=== PATIENT | male | born 1980 | race Caucasian/White ===

== ENCOUNTER 2017-01-26 16:04 | Inpatient (IN) ==
[2017-01-26 16:59] LABS: Bilirubin,Urine Negative (Negative); Blood,Urine Negative (Negative); Clarity,Urine Cloudy (Clear); Color,Urine Dark Yellow (Yellow); Glucose,Urine (UA) Normal (Normal); Ketones,Urine Negative (Negative); Leukocyte Esterase,Urine Negative (Negative); Nitrite,Urine Negative (Negative); Protein,Urine Trace mg/dL (Neg-Trace); Specific Gravity,Urine > 1.030 (1.010-1.025); Urobilinogen,Urine Normal (Normal)
[2017-01-26 17:01] LABS: Bacteria,Urine None Seen per hpf (None-Few); Hyaline Casts,Urine None Seen per lpf (None-Few); Squamous Epithelial Cell,Urine Many per lpf (None-Few)
[2017-01-26 17:05] LABS: Amphetamine Screen,Urine Negative ng/mL (Cutoff=1000); Barbiturate Screen,Urine Negative ng/mL (Cutoff=200); Benzodiazepines Screen,Urine Positive ng/mL (Cutoff=200); Cannabinoid Screen,Urine Negative ng/mL (Cutoff = 50); Cocaine Screen,Urine Negative ng/mL (Cutoff= 300); Opiate Screen,Urine Negative ng/mL (Cutoff=300); Phencyclidine Screen,Urine Negative ng/mL (Cutoff=25)
[2017-01-26 17:06] LABS: Basophils # 0.1 K/mcL (0.0-0.2); Basophils % 0.5 %; Eosinophils # 0.4 K/mcL (0.0-0.6); Eosinophils % 4.7 %; Hematocrit 39.5 % (37.5-50.1); Hemoglobin 12.8 g/dL (12.9-16.9); Immature Granulocytes % 0.3 % (0-4); Lymphocytes # 2.3 K/mcL (0.6-4.6); Lymphocytes % 25.5 %; Mean Corpuscular HGB Conc 32.4 g/dL (31.6-35.5); Mean Corpuscular Hemoglobin 29.6 pg (28.0-33.3); Mean Corpuscular Volume 91.2 fL (83.0-100.0); Mean Platelet Volume 10.8 fL (9.4-12.4); Monocytes # 0.6 K/mcL (0.0-1.3); Monocytes % 6.2 %; Neutrophils # 5.7 K/mcL (1.6-8.9); Platelet Count 218 K/mcL (140-400); Red Blood Count 4.33 M/mcL (4.19-5.50); Red Cell Distribution Width 13.1 % (11.5-14.5); Segmented Neutrophils % 62.8 %
[2017-01-26 17:23] LABS: BUN/Creatinine Ratio 14 (6-26); Blood Urea Nitrogen 14 mg/dL (8-26); Calcium 9.2 mg/dL (8.6-10.8); Carbon Dioxide 30 mEq/L (19-29); Chloride 106 mEq/L (98-109); Glucose 129 mg/dL (70-99); Osmolality,Calculated 298 (280-300); Potassium 3.8 mEq/L (3.5-4.5); Sodium 143 mEq/L (136-145); eGFR For African Americans > 60 (> 60); eGFR For Non-African Americans > 60 (> 60)
[2017-01-26 17:24] LABS: Acetaminophen < 1.0 mcg/mL (10-30); Ethanol < 10 mg/dL (0-10); Salicylate < 5.0 mg/dL (15-30)
--- NOTE | 2017-01-26 17:37 | Emergency Department Note ---
START Narrative - START START: I examined this patient and my medical decision-making was reviewed with the Resident Physician. I agree with the documented findings, disposition and treatment plan as described except to the extent set forth below. Patient to ED with depression and suicidal thoughts. Plans to stab himself or overdose. States has been depressed since the hospital admission. Exam shows him in no acute distress. Mildly anxious. Plan. Medical clearance and 1A evaluation. [place] slip. Psych consult pending. 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
--- NOTE | 2017-01-26 18:47 | Emergency Department Note ---
Disposition Clinical Impression: Suicidal ideation, Homicidal ideation Disposition: Admitted As Inpatient Condition: Good Time of Disposition: 18:49 General Adult HPI - General Chief complaint: ED Psychiatric Symptoms Stated complaint: SI, Want to kill myself Time Seen by Provider: 01/26/17 16:30 Source: patient Limitations: no limitations Nursing Notes Reviewed: Yes Vital Signs Reviewed: Yes - History of Present Illness HPI Narrative: Patient complaining of suicidal and homicidal ideation. States he has been depressed since August. Does take medications but has not been taking them appropriately since his left him this week. States that he will stab himself in the chest were taken overdose of medication. He states he feels safe all he is here. Pain Scale: 0 - Related Data Home Medications Medication Instructions Recorded Confirmed Alprazolam [Xanax] 2 mg PO TID 01/26/17 01/26/17 Amitriptyline HCl 150 mg PO HS 01/26/17 01/26/17 Apixaban [Eliquis] 5 mg PO BID 01/26/17 01/26/17 Atorvastatin [Lipitor] 40 mg PO HS 01/26/17 01/26/17 BuPROPion SR (12 HR) [Wellbutrin 150 mg PO BID 01/26/17 01/26/17 SR] Gabapentin [Neurontin] 900 mg PO TID 01/26/17 01/26/17 Lisinopril/Hydrochlorothiazide 1 each PO DAILY 01/26/17 01/26/17 [Zestoretic 20-12.5 mg Tablet] Multivitamin [Multi-Day Vitamins] 1 each PO DAILY 01/26/17 01/26/17 Allergies Allergy/AdvReac Type Severity Reaction Status Date / Time Penicillins Allergy Hives Verified 01/26/17 16:09 sulfamethoxazole Allergy Hives Verified 01/26/17 16:09 [From Bactrim] trimethoprim [From Bactrim] Allergy Hives Verified 01/26/17 16:09 All systems ED: reviewed and negative except as stated. Constitutional: Denies: fever, chills Cardiovascular: Denies: chest pain, palpitations, syncope Respiratory: Denies: cough, dyspnea Gastrointestinal: Denies: abdominal pain, nausea, vomiting, diarrhea, hematemesis, melena, hematochezia Genitourinary: Denies: urgency, dysuria, frequency, hematuria Musculoskeletal: Denies: back pain, neck pain Integumentary: Denies: rash, abrasion, lesions Neurological: Denies: headache, weakness, numbness Psychiatric: Reports: suicidal thoughts, homicidal thoughts. Denies: auditory hallucinations, visual hallucinations Past Medical History - Past Medical History Medical history: Reports: CVA, DVT, hypertension Psychiatric history: Reports: anxiety, depression - Social History Smoking Status: Current every day smoker Smokeless Tobacco Status: No Alcohol use: Reports: none Drug use: Reports: none Physical Exam - General Limitations: no limitations General appearance: alert, in no apparent distress - Head Head exam: atraumatic, normocephalic, normal inspection - Eye Eye exam: Present: normal appearance, PERRL, EOMI. Absent: scleral icterus - ENT ENT exam: normal exam, normal oropharynx, mucous membranes moist - Neck Neck exam: Present: normal inspection, full ROM, trachea midline. Absent: tenderness, meningismus, lymphadenopathy - Chest Chest inspection: Present: normal inspection, symmetric chest wall rise. Absent : tenderness - Respiratory Respiratory exam: Present: normal lung sounds bilaterally. Absent: respiratory distress, accessory muscle use - Cardiovascular Cardiovascular exam: Present: regular rate, normal rhythm, normal heart sounds - Abdominal Exam Abdominal exam: Present: soft, Non-Tender. Absent: rigidity - Extremities Exam Extremities exam: Present: normal inspection, full ROM, normal capillary refill. Absent: tenderness, pedal edema - Neurological Exam Neurological exam: Present: alert, oriented X3 - Psychiatric Psychiatric exam: Present: normal affect, normal mood - Skin Skin exam: Present: warm, dry, intact, normal color. Absent: rash, cyanosis, diaphoresis Course Course Narrative: Male patient presenting to the emergency department complaining of suicidal and homicidal ideation. He states that he has been depressed after he had a stroke in August. He is on Wellbutrin as well as a benzo and amitriptyline. He states his left him last week. He states that he will go to his mother's grave and stab himself in the chest. He states if he cannot get there he will then take an overdose of a pain medication. If his is cheating on him she he will findings I kill him and then kill himself in front of his . He has no other complaints at this time. He tells stories frequently while I am in the room. His lung sounds are clear heart tones are normal. His abdomen is soft and nontender. He states that he feels safe here. He denies any hallucinations. We will get a psych workup on patient and have one a evaluate him. Vital Signs Temperature 97.8 F 01/26/17 16:05 Pulse Rate 104 01/26/17 16:05 Respiratory Rate 18 01/26/17 16:05 Blood Pressure 132/77 01/26/17 16:05 O2 Sat by Pulse Oximetry 96 01/26/17 16:05 Temperature 97.8 F 01/27/17 08:32 Pulse Rate 96 01/27/17 08:32 Respiratory Rate 18 01/27/17 08:32 Blood Pressure 136/87 01/27/17 08:32 O2 Sat by Pulse Oximetry 96 01/26/17 16:05 Medical Decision Making - Medical Records Medical records reviewed: Yes I reviewed the patient's medical records. - Lab Data Lab results reviewed: Yes I reviewed the patient's lab results. Result diagrams: 01/26/17 17:01 01/26/17 17:01 Lab Results 01/26/17 01/26/17 01/26/17 Range/Units 16:50 16:50 17:01 WBC 9.1 (4.3-11.1) K/mcL RBC 4.33 (4.19-5.50) M/mcL Hgb 12.8 L (12.9-16.9) g/dL Hct 39.5 (37.5-50.1) % MCV 91.2 (83.0-100.0) fL MCH 29.6 (28.0-33.3) pg MCHC 32.4 (31.6-35.5) g/dL RDW 13.1 (11.5-14.5) % Plt Count 218 (140-400) K/mcL MPV 10.8 (9.4-12.4) fL Immature Gran % 0.3 (0-4) % Seg Neutrophils % 62.8 % Lymphocytes % 25.5 % Monocytes % 6.2 % Eosinophils % 4.7 % Basophils % 0.5 % Neutrophils # 5.7 (1.6-8.9) K/mcL Lymphocytes # 2.3 (0.6-4.6) K/mcL Monocytes # 0.6 (0.0-1.3) K/mcL Eosinophils # 0.4 (0.0-0.6) K/mcL Basophils # 0.1 (0.0-0.2) K/mcL Sodium (136-145) mEq/L Potassium (3.5-4.5) mEq/L Chloride (98-109) mEq/L Carbon Dioxide (19-29) mEq/L BUN (8-26) mg/dL Creatinine (0.72-1.25) mg/dL Est GFR ( Amer) (> 60) Est GFR (Non-Af Amer) (> 60) BUN/Creatinine Ratio (6-26) Glucose (70-99) mg/dL Calculated Osmolality (280-300) Calcium (8.6-10.8) mg/dL Urine Color Dark Yellow (Yellow) Urine Clarity Cloudy A (Clear) Urine pH 6.0 (5.0-8.0) pH Units Ur Specific [place] > 1.030 H (1.010-1.025) Urine Protein Trace (Neg-Trace) mg/dL Urine Glucose (UA) Normal (Normal) mg/dL Urine Ketones Negative (Negative) mg/dL Urine Blood Negative (Negative) Urine Nitrite Negative (Negative) Urine Bilirubin Negative (Negative) Urine Urobilinogen Normal (Normal) mg/dL Ur Leukocyte Esterase Negative (Negative) Urine Microscopic RBC 5-15 H (0-3) per hpf Urine Microscopic WBC 5-15 H (0-3) per hpf Ur Squamous Epith Cells Many H (None-Few) per lpf Urine Bacteria None Seen (None-Few) per hpf Hyaline Casts None Seen (None-Few) per lpf Salicylates (15-30) mg/dL Urine Opiates Screen Negative (Yrfdzg=273) ng/mL Acetaminophen (10-30) mcg/mL Ur Barbiturates Screen Negative (Gdctnj=024) ng/mL Ur Phencyclidine Scrn Negative (Cutoff=25) ng/mL Ur Amphetamines Screen Negative (Qlcuvv=5464) ng/mL U Benzodiazepines Scrn Positive H (Isjuns=423) ng/mL Urine Cocaine Screen Negative (Cutoff= 300) ng/mL U Marijuana (THC) Screen Negative (Cutoff = 50) ng/mL Ethyl Alcohol (0-10) mg/dL 01/26/17 Range/Units 17:01 WBC (4.3-11.1) K/mcL RBC (4.19-5.50) M/mcL Hgb (12.9-16.9) g/dL Hct (37.5-50.1) % MCV (83.0-100.0) fL MCH (28.0-33.3) pg MCHC (31.6-35.5) g/dL RDW (11.5-14.5) % Plt Count (140-400) K/mcL MPV (9.4-12.4) fL Immature Gran % (0-4) % Seg Neutrophils % % Lymphocytes % % Monocytes % % Eosinophils % % Basophils % % Neutrophils # (1.6-8.9) K/mcL Lymphocytes # (0.6-4.6) K/mcL Monocytes # (0.0-1.3) K/mcL Eosinophils # (0.0-0.6) K/mcL Basophils # (0.0-0.2) K/mcL Sodium 143 (136-145) mEq/L Potassium 3.8 (3.5-4.5) mEq/L Chloride 106 (98-109) mEq/L Carbon Dioxide 30 H (19-29) mEq/L BUN 14 (8-26) mg/dL Creatinine 0.99 (0.72-1.25) mg/dL Est GFR ( Amer) > 60 (> 60) Est GFR (Non-Af Amer) > 60 (> 60) BUN/Creatinine Ratio 14 (6-26) Glucose 129 H (70-99) mg/dL Calculated Osmolality 298 (280-300) Calcium 9.2 (8.6-10.8) mg/dL Urine Color (Yellow) Urine Clarity (Clear) Urine pH (5.0-8.0) pH Units Ur Specific [place] (1.010-1.025) Urine Protein (Neg-Trace) mg/dL Urine Glucose (UA) (Normal) mg/dL Urine Ketones (Negative) mg/dL Urine Blood (Negative) Urine Nitrite (Negative) Urine Bilirubin (Negative) Urine Urobilinogen (Normal) mg/dL Ur Leukocyte Esterase (Negative) Urine Microscopic RBC (0-3) per hpf Urine Microscopic WBC (0-3) per hpf Ur Squamous Epith Cells (None-Few) per lpf Urine Bacteria (None-Few) per hpf Hyaline Casts (None-Few) per lpf Salicylates < 5.0 L (15-30) mg/dL Urine Opiates Screen (Mqnlkw=583) ng/mL Acetaminophen < 1.0 L (10-30) mcg/mL Ur Barbiturates Screen (Maonjz=730) ng/mL Ur Phencyclidine Scrn (Cutoff=25) ng/mL Ur Amphetamines Screen (Unbtqh=5615) ng/mL U Benzodiazepines Scrn (Jfmtqb=054) ng/mL Urine Cocaine Screen (Cutoff= 300) ng/mL U Marijuana (THC) Screen (Cutoff = 50) ng/mL Ethyl Alcohol < 10 (0-10) mg/dL S.B.A.R. - S.B.A.R. Situation: Demographics (Patient complaining of suicidal ideation. States that he will go to his mothers grave and stab himself in the chest. If He cannot make it there) Background: Presenting Complaint (SI and HI), Relevant PMH, Meds, & Allergies ( Recent stroke in August. Does have depression since then. Not taking meds as prescribed recently.) Assessment: Vital Signs (Stable) Recommendation: Recommendation based on pending studies, treatments, or consults (Admit to the hospital. He is exposed at this time.) S.B.A.R. Report Given to: Isauro Munoz Repor Time: 18:59
--- NOTE | 2017-01-26 19:13 | Emergency Department Note ---
Disposition Clinical Impression: Suicidal ideation, Homicidal ideation Disposition: Admitted As Inpatient Condition: Good Referrals: NONE,PCP [Primary Care Provider] - Forms: ED Satisfaction Letter General Adult HPI - General Chief complaint: ED Psychiatric Symptoms Stated complaint: SI, Want to kill myself Time Seen by Provider: 01/26/17 16:30 Source: patient Limitations: no limitations - History of Present Illness Pain Scale: 0 - Related Data Allergies Allergy/AdvReac Type Severity Reaction Status Date / Time Penicillins Allergy Hives Verified 01/26/17 16:09 sulfamethoxazole Allergy Hives Verified 01/26/17 16:09 [From Bactrim] trimethoprim [From Bactrim] Allergy Hives Verified 01/26/17 16:09 Constitutional: Denies: fever, chills Cardiovascular: Denies: chest pain, palpitations, syncope Respiratory: Denies: cough, dyspnea Gastrointestinal: Denies: abdominal pain, nausea, vomiting, diarrhea, hematemesis, melena, hematochezia Genitourinary: Denies: urgency, dysuria, frequency, hematuria Musculoskeletal: Denies: back pain, neck pain Integumentary: Denies: rash, abrasion, lesions Neurological: Denies: headache, weakness, numbness Psychiatric: Reports: suicidal thoughts, homicidal thoughts. Denies: auditory hallucinations, visual hallucinations Past Medical History - Past Medical History Medical history: Reports: CVA, DVT, hypertension Psychiatric history: Reports: anxiety, depression - Social History Smoking Status: Current every day smoker Smokeless Tobacco Status: No Alcohol use: Reports: none Drug use: Reports: none Physical Exam - General Limitations: no limitations General appearance: alert, in no apparent distress Course Course Narrative: Patient received in sign out from dayshift team. He was waiting for a bed from the psychiatric services. He was evaluated by the psychiatric team in the emergency department and was deemed a candidate for inpatient psychiatric treatment. Patient accepted to 1 a for evaluation Vital Signs Temperature 97.8 F 01/26/17 16:05 Pulse Rate 104 01/26/17 16:05 Respiratory Rate 18 01/26/17 16:05 Blood Pressure 132/77 01/26/17 16:05 O2 Sat by Pulse Oximetry 96 01/26/17 16:05 Temperature 97.8 F 01/26/17 16:05 Pulse Rate 104 01/26/17 16:05 Respiratory Rate 18 01/26/17 16:05 Blood Pressure 132/77 01/26/17 16:05 O2 Sat by Pulse Oximetry 96 01/26/17 16:05 Medical Decision Making - MDM Narrative Medical decision making narrative: 36-year-old male presents to the ER due to suicidal ideation. He was medically cleared and evaluated by the psychiatric service in the emergency department. Patient was accepted to the psychiatric service for inpatient management. - Lab Data Lab results reviewed: Yes I reviewed the patient's lab results. Result diagrams: 01/26/17 17:01 01/26/17 17:01 Lab Results 01/26/17 01/26/17 01/26/17 Range/Units 16:50 16:50 17:01 WBC 9.1 (4.3-11.1) K/mcL RBC 4.33 (4.19-5.50) M/mcL Hgb 12.8 L (12.9-16.9) g/dL Hct 39.5 (37.5-50.1) % MCV 91.2 (83.0-100.0) fL MCH 29.6 (28.0-33.3) pg MCHC 32.4 (31.6-35.5) g/dL RDW 13.1 (11.5-14.5) % Plt Count 218 (140-400) K/mcL MPV 10.8 (9.4-12.4) fL Immature Gran % 0.3 (0-4) % Seg Neutrophils % 62.8 % Lymphocytes % 25.5 % Monocytes % 6.2 % Eosinophils % 4.7 % Basophils % 0.5 % Neutrophils # 5.7 (1.6-8.9) K/mcL Lymphocytes # 2.3 (0.6-4.6) K/mcL Monocytes # 0.6 (0.0-1.3) K/mcL Eosinophils # 0.4 (0.0-0.6) K/mcL Basophils # 0.1 (0.0-0.2) K/mcL Sodium (136-145) mEq/L Potassium (3.5-4.5) mEq/L Chloride (98-109) mEq/L Carbon Dioxide (19-29) mEq/L BUN (8-26) mg/dL Creatinine (0.72-1.25) mg/dL Est GFR ( Amer) (> 60) Est GFR (Non-Af Amer) (> 60) BUN/Creatinine Ratio (6-26) Glucose (70-99) mg/dL Calculated Osmolality (280-300) Calcium (8.6-10.8) mg/dL Urine Color Dark Yellow (Yellow) Urine Clarity Cloudy A (Clear) Urine pH 6.0 (5.0-8.0) pH Units Ur Specific [place] > 1.030 H (1.010-1.025) Urine Protein Trace (Neg-Trace) mg/dL Urine Glucose (UA) Normal (Normal) mg/dL Urine Ketones Negative (Negative) mg/dL Urine Blood Negative (Negative) Urine Nitrite Negative (Negative) Urine Bilirubin Negative (Negative) Urine Urobilinogen Normal (Normal) mg/dL Ur Leukocyte Esterase Negative (Negative) Urine Microscopic RBC 5-15 H (0-3) per hpf Urine Microscopic WBC 5-15 H (0-3) per hpf Ur Squamous Epith Cells Many H (None-Few) per lpf Urine Bacteria None Seen (None-Few) per hpf Hyaline Casts None Seen (None-Few) per lpf Salicylates (15-30) mg/dL Urine Opiates Screen Negative (Qcdfik=562) ng/mL Acetaminophen (10-30) mcg/mL Ur Barbiturates Screen Negative (Tbouuo=182) ng/mL Ur Phencyclidine Scrn Negative (Cutoff=25) ng/mL Ur Amphetamines Screen Negative (Nzbznn=1545) ng/mL U Benzodiazepines Scrn Positive H (Jkqauf=425) ng/mL Urine Cocaine Screen Negative (Cutoff= 300) ng/mL U Marijuana (THC) Screen Negative (Cutoff = 50) ng/mL Ethyl Alcohol (0-10) mg/dL 01/26/17 Range/Units 17:01 WBC (4.3-11.1) K/mcL RBC (4.19-5.50) M/mcL Hgb (12.9-16.9) g/dL Hct (37.5-50.1) % MCV (83.0-100.0) fL MCH (28.0-33.3) pg MCHC (31.6-35.5) g/dL RDW (11.5-14.5) % Plt Count (140-400) K/mcL MPV (9.4-12.4) fL Immature Gran % (0-4) % Seg Neutrophils % % Lymphocytes % % Monocytes % % Eosinophils % % Basophils % % Neutrophils # (1.6-8.9) K/mcL Lymphocytes # (0.6-4.6) K/mcL Monocytes # (0.0-1.3) K/mcL Eosinophils # (0.0-0.6) K/mcL Basophils # (0.0-0.2) K/mcL Sodium 143 (136-145) mEq/L Potassium 3.8 (3.5-4.5) mEq/L Chloride 106 (98-109) mEq/L Carbon Dioxide 30 H (19-29) mEq/L BUN 14 (8-26) mg/dL Creatinine 0.99 (0.72-1.25) mg/dL Est GFR ( Amer) > 60 (> 60) Est GFR (Non-Af Amer) > 60 (> 60) BUN/Creatinine Ratio 14 (6-26) Glucose 129 H (70-99) mg/dL Calculated Osmolality 298 (280-300) Calcium 9.2 (8.6-10.8) mg/dL Urine Color (Yellow) Urine Clarity (Clear) Urine pH (5.0-8.0) pH Units Ur Specific [place] (1.010-1.025) Urine Protein (Neg-Trace) mg/dL Urine Glucose (UA) (Normal) mg/dL Urine Ketones (Negative) mg/dL Urine Blood (Negative) Urine Nitrite (Negative) Urine Bilirubin (Negative) Urine Urobilinogen (Normal) mg/dL Ur Leukocyte Esterase (Negative) Urine Microscopic RBC (0-3) per hpf Urine Microscopic WBC (0-3) per hpf Ur Squamous Epith Cells (None-Few) per lpf Urine Bacteria (None-Few) per hpf Hyaline Casts (None-Few) per lpf Salicylates < 5.0 L (15-30) mg/dL Urine Opiates Screen (Vttduv=174) ng/mL Acetaminophen < 1.0 L (10-30) mcg/mL Ur Barbiturates Screen (Fyjmjl=317) ng/mL Ur Phencyclidine Scrn (Cutoff=25) ng/mL Ur Amphetamines Screen (Qnyyre=3083) ng/mL U Benzodiazepines Scrn (Figyih=229) ng/mL Urine Cocaine Screen (Cutoff= 300) ng/mL U Marijuana (THC) Screen (Cutoff = 50) ng/mL Ethyl Alcohol < 10 (0-10) mg/dL Attestation Statement - Attestation Attestation: I examined this patient and my medical decision-making was reviewed with the Resident Physician. I agree with the documented findings, disposition and treatment plan as described except to the extent set forth below. This patient was signed out at shift change from Dr. Nicolas and Dr. Clark. Please refer to their notes for complete details of history and physical examination. At shift change the patient has been evaluated by the psychiatry service and is just awaiting disposition. Psychiatry decided to admit the patient to the [address] unit. Bed request placed and patient is being admitted.
[2017-01-26] MEDS ORDERED: hydrOXYzine pamoate 25 MG CAPSULE PO PRN (20:00)
[2017-01-26] MEDS ORDERED: traZODone 50 MG TABLET PO PRN (20:00)
[2017-01-26] MEDS ORDERED: *HR* LORazepam 2 MG/ML VIAL IM PRN (20:00)
[2017-01-26] MEDS ORDERED: Haloperidol Lactate 5 MG/ML VIAL IM PRN (20:00)
[2017-01-26] MEDS ORDERED: *HR* LORazepam 1 MG TABLET PO PRN (20:00)
[2017-01-26] MEDS ORDERED: Mag Hydrox/Al Hydrox/Simeth 30 ML UDC PO PRN (20:00)
[2017-01-26] MEDS ORDERED: MOM Conc 10 ML UD.LIQ PO PRN (20:00)
[2017-01-26] MEDS: Gabapentin 300 MG CAPSULE PO SCH (20:48)
[2017-01-26] MEDS: ALPRAZolam 1 MG TABLET PO SCH (20:48)
[2017-01-26] MEDS: BuPROPion SR (12 HR) 150 MG TABLET PO SCH (20:49)
[2017-01-26] MEDS: APIXABAN 5 MG TABLET PO SCH (21:29)
[2017-01-27] MEDS: Nicotine 21 MG PATCH.TD24 TD SCH (08:52)
[2017-01-27] MEDS: ALPRAZolam 1 MG TABLET PO SCH ×3 (08:52→20:51)
[2017-01-27] MEDS: Lisinopril-HCTZ 20-12.5mg TABLET PO SCH (08:52)
[2017-01-27] MEDS: Gabapentin 300 MG CAPSULE PO SCH ×3 (08:53→20:50)
[2017-01-27] MEDS: APIXABAN 5 MG TABLET PO SCH ×2 (08:53→20:53)
[2017-01-27] MEDS: BuPROPion SR (12 HR) 150 MG TABLET PO SCH ×2 (08:53→20:50)
[2017-01-27] MEDS: Multivit/Ca/Min/Fe/FA 1 TAB TABLET PO SCH (08:53)
--- NOTE | 2017-01-27 11:44 | Psychiatry History & Physical ---
Date of Encounter: 01/27/17 Time of Encounter: 11:25 History of Present Illness Patient Stated Chief Complaint: "I wanted to ." Medicare Admission Attestation: For traditional Medicare patients the provided hospital inpatient services are reasonable and necessary and in the case of services not specified as inpatient -only under 42 CFR 419.22 (n), that they are appropriately provided as inpatient services in accordance 42 CFR 412.3. For Critical Access Hospital the patient may reasonably be expected to be discharged or transferred to a hospital within 96 hours after admission to the Critical Access Hospital. Admitted From: Emergency Dept History of Present Illness: Mr. Liu is a 36 year old male with a history of chronic pain, depression, anxiety, suicide attempt who presented to the hospital with increasing depression and suicidal ideations with plans to stab himself in the heart. Patient was admitted to for psychiatric stabilization. Rolando reports that he recently gave his a car and that they were apparently supposed to go on vacation and usually up one morning by his missing as well as their puppy and all of his possessions missing. Patient was able to get a hold of his told him that she was in [place]. Patient does not believe this but is very upset by this turn of events because he thought their relationship was fine. Patient's story is somewhat confusing as he states that he was thinking of going to a level one spray killing himself with a knife. He then states that he is because of the hospital instead. Initially he states that the medications including amitriptyline and other psychiatric medications are not helpful for him. We discussed the possibility of making medication changes including tapering Xanax and patient then decided that he actually medications are working fine. He continues to endorse suicidal ideations with no plan at this time. He does report difficulty sleeping, both falling asleep and staying asleep. He does occasionally struggle with nightmares. No history of grandiosity, decreased need for sleep or impulsivity. He does report 1 previous suicide attempt that he cut his wrists but was not admitted for psychiatric stabilization at that time. Patient was going to [facility] transfer his care to his primary care provider who is in [place]. Patient mentioned to staff that his PCP may be tapering him off his Xanax. It was also noted by staff that some of the patient's text messages on his phone were talking about selling controlled substances. Past Med Surg Social Fam HX - Past Medical History Medical history: CVA, DVT, hypertension - Past Psychiatric History Psychiatric history: Reports: depression, prior suicide attempt. Denies: previous psychiatric hospitalization Past psychiatric history details: Patient does not have a psychiatrist at present. No previous psychiatric admissions. One previous suicide attempt as discussed in history of present illness.. Family psychiatric history: Yes Family Psychiatric History Details: Sister has depression and anxiety. Family History of Suicide: Attempted (Sister) - Past Surgical History Surgical History: no surgical history - Social History Smoking Status: Current every day smoker Smokeless Tobacco Status: No Alcohol use: none Drug use: none Medications & Allergies Alprazolam [Xanax] 2 mg PO TID 01/26/17 [History] Amitriptyline HCl 150 mg PO HS 01/26/17 [History] Apixaban [Eliquis] 5 mg PO BID 01/26/17 [History] Atorvastatin [Lipitor] 40 mg PO HS 01/26/17 [History] BuPROPion SR (12 HR) [Wellbutrin SR] 150 mg PO BID 01/26/17 [History] Gabapentin [Neurontin] 900 mg PO TID 01/26/17 [History] Lisinopril/Hydrochlorothiazide [Zestoretic 20-12.5 mg Tablet] 1 each PO DAILY [History] Multivitamin [Multi-Day Vitamins] 1 each PO DAILY 01/26/17 [History] Allergies Penicillins Allergy (Verified 01/26/17 16:09) Hives sulfamethoxazole [From Bactrim] Allergy (Verified 01/26/17 16:09) Hives trimethoprim [From Bactrim] Allergy (Verified 01/26/17 16:09) Hives Review of Systems Constitutional: Denies: fever, chills, weakness, weight change Eyes: Denies: eye pain, vision change Ears, Nose, Throat: Denies: ear pain, throat pain, dental pain, hearing loss, congestion Cardiovascular: Denies: chest pain, palpitations, dyspnea on exertion Respiratory: Denies: cough, dyspnea, wheezes Gastrointestinal: Denies: abdominal pain, nausea, vomiting, diarrhea, constipation Genitourinary male: Denies: urgency, dysuria, frequency, genital lesions Genitourinary female: Denies: urgency, dysuria, frequency, abnormal menses, dyspareunia Musculoskeletal: Reports: back pain, joint pain, myalgia Integumentary: Denies: rash, lesions, pruritus Neurological: Reports: headache Psychiatric: Reports: depression, anxiety, abnormal sleep pattern, suicidal ideation, anhedonia, difficulty concentrating, hopelessness, irritability, mood swings Endocrine: Denies: fatigue, heat or cold intolerance Hematologic/Lymphatic: Denies: easy bruising, lymphadenopathy Allergic/Immunologic: Denies: urticaria, itchy eyes Mental Status Exam Patient orientation: Yes Person, Yes Time, Yes Place Level of alertness: Alert Patient appearance: Unkempt Behavior: dramatic Psychomotor activity: Normal Eye contact: Fleeting Contact Mood description: Depressed Affect description: full range, incongruent with mood Speech pattern: Normal rate, Normal rhythm, Normal tone Speech volume: Normal Thought content: Yes Intact, Yes Suicidal ideation Perceptual disturbances: No Auditory hallucinations, No Visual hallucinations Attention span: Capable of Focused Attention Memory description: Grossly Intact Patient reliability: Questionable Historian Intelligence estimate: Average Judgment: Limited Insight: Minimal Exam - HEENT Head exam IM: Present: atraumatic Eye exam IM: Present: EOMI - Neurological Neurological exam IM: Present: strengths equal and symetr throughout - Extremities Extremities exam IM: Present: full ROM - Skin Skin exam IM: Present: dry, warm Results - Vital Signs Vital signs: Temp Pulse Resp BP Pulse Ox 97.8 F 96 18 136/87 96 01/27/17 08:32 01/27/17 08:32 01/27/17 08:32 01/27/17 08:32 01/26/17 16:05 - Labs Labs: Laboratory Last Values WBC 9.1 K/mcL (4.3-11.1) 01/26/17 17:01 RBC 4.33 M/mcL (4.19-5.50) 01/26/17 17:01 Hgb 12.8 g/dL (12.9-16.9) L 01/26/17 17:01 Hct 39.5 % (37.5-50.1) 01/26/17 17:01 MCV 91.2 fL (83.0-100.0) 01/26/17 17:01 MCH 29.6 pg (28.0-33.3) 01/26/17 17:01 MCHC 32.4 g/dL (31.6-35.5) 01/26/17 17:01 RDW 13.1 % (11.5-14.5) 01/26/17 17:01 Plt Count 218 K/mcL (140-400) 01/26/17 17:01 MPV 10.8 fL (9.4-12.4) 01/26/17 17:01 Immature Gran % 0.3 % (0-4) 01/26/17 17: Seg Neutrophils % 62.8 % 01/26/17 17: Lymphocytes % 25.5 % 01/26/17 17: Monocytes % 6.2 % 01/26/17 17:01 Eosinophils % 4.7 % 01/26/17 17: Basophils % 0.5 % 01/26/17 17: Neutrophils # 5.7 K/mcL (1.6-8.9) 01/26/17 17:01 Lymphocytes # 2.3 K/mcL (0.6-4.6) 01/26/17 17: Monocytes # 0.6 K/mcL (0.0-1.3) 01/26/17 17:01 Eosinophils # 0.4 K/mcL (0.0-0.6) 01/26/17 17: Basophils # 0.1 K/mcL (0.0-0.2) 01/26/17 17:01 Sodium 143 mEq/L (136-145) 01/26/17 17:01 Potassium 3.8 mEq/L (3.5-4.5) 01/26/17 17: Chloride 106 mEq/L (98-109) 01/26/17 17: Carbon Dioxide 30 mEq/L (19-29) H 01/26/17 17:01 BUN 14 mg/dL (8-26) 01/26/17 17:01 Creatinine 0.99 mg/dL (0.72-1.25) 01/26/17 17:01 Est GFR ( Amer) > 60 (> 60) 01/26/17 17:01 Est GFR (Non-Af Amer) > 60 (> 60) 01/26/17 17:01 BUN/Creatinine Ratio 14 (6-26) 01/26/17 17: Glucose 129 mg/dL (70-99) H 01/26/17 17:01 Calculated Osmolality 298 (280-300) 01/26/17 17:01 Calcium 9.2 mg/dL (8.6-10.8) 01/26/17 17:01 Urine Color Dark Yellow (Yellow) 01/26/17 16:50 Urine Clarity Cloudy (Clear) A 01/26/17 16:50 Urine pH 6.0 pH Units (5.0-8.0) 01/26/17 16:50 Ur Specific [place] > 1.030 (1.010-1.025) H 01/26/17 16:50 Urine Protein Trace mg/dL (Neg-Trace) 01/26/17 16:50 Urine Glucose (UA) Normal mg/dL (Normal) 01/26/17 16:50 Urine Ketones Negative mg/dL (Negative) 01/26/17 16:50 Urine Blood Negative (Negative) 01/26/17 16:50 Urine Nitrite Negative (Negative) 01/26/17 16:50 Urine Bilirubin Negative (Negative) 01/26/17 16:50 Urine Urobilinogen Normal mg/dL (Normal) 01/26/17 16:50 Ur Leukocyte Esterase Negative (Negative) 01/26/17 16:50 Urine Microscopic RBC 5-15 per hpf (0-3) H 01/26/17 16:50 Urine Microscopic WBC 5-15 per hpf (0-3) H 01/26/17 16:50 Ur Squamous Epith Cells Many per lpf (None-Few) H 01/26/17 16:50 Urine Bacteria None Seen per hpf (None-Few) 01/26/17 16:50 Hyaline Casts None Seen per lpf (None-Few) 01/26/17 16:50 Salicylates < 5.0 mg/dL (15-30) L 01/26/17 17:01 Urine Opiates Screen Negative ng/mL (Ebzwto=747) 01/26/17 16:50 Acetaminophen < 1.0 mcg/mL (10-30) L 01/26/17 17:01 Ur Barbiturates Screen Negative ng/mL (Mosict=924) 01/26/17 16:50 Ur Phencyclidine Scrn Negative ng/mL (Cutoff=25) 01/26/17 16:50 Ur Amphetamines Screen Negative ng/mL (Lvorfd=5185) 01/26/17 16:50 U Benzodiazepines Scrn Positive ng/mL (Nxjuub=419) H 01/26/17 16:50 Urine Cocaine Screen Negative ng/mL (Cutoff= 300) 01/26/17 16:50 U Marijuana (THC) Screen Negative ng/mL (Cutoff = 50) 01/26/17 16:50 Ethyl Alcohol < 10 mg/dL (0-10) 01/26/17 17:01 Assessment and Plan (1) Depression Current visit: Yes Status: Acute Plan: Admit inpatient for safety and stabilization, Close observation, Suicide Precautions per unit protocol, Encourage participation in unit milieu, Group Therapy, Monitor sleep, Monitor appetite Additional Plan: Restart Amitryptyline. Encourage positive coping strategies. Will get BRIAN for PCP to see what plan was with psych medications. Suicide precautions. Risks, benefits, side effects, alternatives discussed w/pt: Yes Patient agreeable to treatment: Yes Estimated Length of Stay (Days): 3 Qualifiers: Depression Type: major depressive disorder Major depression recurrence: recurrent Active/Remission status: currently active Major depression episode severity: moderate Qualified Code(s): F33.1 - Major depressive disorder, recurrent, moderate (2) Anxiety Current visit: Yes Status: Acute Plan: Admit inpatient for safety and stabilization, Close observation, Suicide Precautions per unit protocol, Encourage participation in unit milieu, Group Therapy, Monitor sleep, Monitor appetite Additional Plan: We will confirm active Xanax prescription. I have decreased dosage to 1 mg 3 times a day in [place] that patient may have been diverting medications. Vistaril as needed for anxiety. Risks, benefits, side effects, alternatives discussed w/pt: Yes Patient agreeable to treatment: Yes (3) Personality disorder Current visit: Yes Status: Acute Plan: Admit inpatient for safety and stabilization, Close observation, Suicide Precautions per unit protocol, Encourage participation in unit milieu, Group Therapy, Monitor sleep, Monitor appetite Additional Plan: Encourage positive coping strategies.
[2017-01-27] MEDS: Acetaminophen 325 MG TABLET PO PRN (19:43)
[2017-01-28] MEDS: Gabapentin 300 MG CAPSULE PO SCH ×3 (09:21→20:40)
[2017-01-28] MEDS: Nicotine 21 MG PATCH.TD24 TD SCH (09:22)
[2017-01-28] MEDS: APIXABAN 5 MG TABLET PO SCH ×2 (09:22→20:40)
[2017-01-28] MEDS: BuPROPion SR (12 HR) 150 MG TABLET PO SCH (09:22)
[2017-01-28] MEDS: ALPRAZolam 1 MG TABLET PO SCH ×3 (09:22→20:40)
[2017-01-28] MEDS: Multivit/Ca/Min/Fe/FA 1 TAB TABLET PO SCH (09:22)
[2017-01-28] MEDS: Lisinopril-HCTZ 20-12.5mg TABLET PO SCH (09:27)
--- NOTE | 2017-01-28 12:24 | Psychiatry Progress Note ---
Date of Encounter: 01/28/17 Time of Encounter: 11:10 Subjective Interval history: Patient seen today for follow-up. Also discussed in treatment team. Patient very focused on Xanax and keeps asking staff why his dose was decreased. He also was reported to staff that he was having auditory hallucinations to hurt himself. When asked about this patient states "sometimes I hear my family and they are telling me to stop." He denies suicidal ideation today. He does not appear to be responding to internal stimuli. Very focused on pain in arms although there is no obvious trauma seen. He would like some Tylenol for this pain. We also discussed treatment options and patient does not think the Wellbutrin is helping. Willing to switch to a different antidepressant. Review of Systems Constitutional: Denies: fever, chills, weakness, weight change Eyes: Denies: eye pain, vision change Ears, Nose, Throat: Denies: ear pain, throat pain, dental pain, hearing loss, congestion Cardiovascular: Denies: chest pain, palpitations, dyspnea on exertion Respiratory: Denies: cough, dyspnea, wheezes Gastrointestinal: Denies: abdominal pain, nausea, vomiting, diarrhea, constipation Musculoskeletal: Reports: back pain, joint pain, myalgia Neurological: Reports: headache, paresthesias Psychiatric: Reports: depression, anxiety, abnormal sleep pattern, anhedonia, difficulty concentrating, hopelessness, irritability, mood swings Objective: Exam Patient orientation: Yes Person, Yes Time, Yes Place Level of alertness: Alert Patient appearance: Appropriate Behavior: calm Psychomotor activity: Normal Eye contact: Minimal Contact Mood description: Depressed Affect description: full range, incongruent with mood Speech pattern: Normal rate, Normal rhythm, Normal tone Speech volume: Normal Thought process: Intact Thought content: No Suicidal ideation, No Homicidal ideation Perceptual disturbances: No Reacting to internal stimuli, Yes Auditory hallucinations Judgment: Limited Insight: Minimal Results - Vital Signs Vital Signs: Temp Pulse Resp BP Pulse Ox 97.6 F 94 20 143/99 96 01/28/17 09:00 01/28/17 09:00 01/28/17 09:00 01/28/17 09:00 01/26/17 16:05 Assessment and Plan (1) Depression Current visit: Yes Status: Acute Plan: Continue hospitalization, Close observation, Suicide Precautions per unit protocol, Encourage participation in unit milieu, Group Therapy, Monitor sleep, Monitor appetite Additional Plan: We will taper Wellbutrin and start Cymbalta. Monitor for depression and anxiety symptoms. Encourage group attendance. Risks, benefits, side effects, alternatives discussed w/pt: Yes Patient agreeable to treatment: Yes Qualifiers: Depression Type: major depressive disorder Major depression recurrence: recurrent Active/Remission status: currently active Major depression episode severity: moderate Qualified Code(s): F33.1 - Major depressive disorder, recurrent, moderate (2) Anxiety Current visit: Yes Status: Acute Plan: Continue hospitalization, Close observation, Suicide Precautions per unit protocol, Encourage participation in unit milieu, Group Therapy, Monitor sleep, Monitor appetite Additional Plan: Continue Xanax at lower dosage. Risks, benefits, side effects, alternatives discussed w/pt: Yes Patient agreeable to treatment: Yes (3) Personality disorder Current visit: Yes Status: Acute Plan: Continue hospitalization, Close observation, Suicide Precautions per unit protocol, Encourage participation in unit milieu, Group Therapy, Monitor sleep, Monitor appetite Additional Plan: Encourage positive coping strategies. Consult Discharge Plan - Plan Referrals: [facility] [Outside] - 01/31/17 12:00 pm (The above appointment is with Nuzhat, counselor, to open your case as a client. After this appointment he will be given a return follow-up to continue mental health counseling services. You will also be provided with an appointment to see the psychiatrist for outpatient psychiatric assessment and medication management services. You will be able to see the psychiatrist within 30 days of you discharge from the hospital. Please bring your photo ID and insurance card to your initial appointment in this office.)
[2017-01-28] MEDS: Acetaminophen 325 MG TABLET PO PRN (16:39)
[2017-01-29] MEDS: Acetaminophen 325 MG TABLET PO PRN ×3 (00:04→23:18)
[2017-01-29] MEDS ORDERED: BuPROPion SR (12 HR) 150 MG TABLET PO SCH (09:00)
[2017-01-29] MEDS: Gabapentin 300 MG CAPSULE PO SCH ×3 (09:11→20:29)
[2017-01-29] MEDS: Multivit/Ca/Min/Fe/FA 1 TAB TABLET PO SCH (09:12)
[2017-01-29] MEDS: APIXABAN 5 MG TABLET PO SCH ×2 (09:12→20:29)
[2017-01-29] MEDS: Lisinopril-HCTZ 20-12.5mg TABLET PO SCH (09:12)
[2017-01-29] MEDS: ALPRAZolam 1 MG TABLET PO SCH ×3 (09:12→20:29)
[2017-01-29] MEDS: Nicotine 21 MG PATCH.TD24 TD SCH (09:13)
--- NOTE | 2017-01-29 12:31 | Psychiatry Progress Note ---
Date of Encounter: 01/29/17 Time of Encounter: 13:00 Subjective Interval history: Patient seen today for follow-up of his mood and anxiety symptoms. He remained somewhat somatically preoccupied especially about pain in his arms which has been chronic area he does report he slept a little better with the trazodone last night that he got as needed. He also takes amitriptyline at bedtime which she states is somewhat helpful for his mood. We discussed good sleep hygiene. Patient denies suicidal ideations but still feels hopeless at times and also very anxious. He does not ask for his Xanax to be increased again today. Review of Systems Psychiatric: Reports: depression, anxiety, abnormal sleep pattern, anhedonia, difficulty concentrating, hopelessness, irritability, mood swings Objective: Exam Patient orientation: Yes Person, Yes Time, Yes Place Level of alertness: Alert Patient appearance: Appropriate Behavior: anxious Psychomotor activity: Normal Eye contact: Minimal Contact Mood description: Depressed Affect description: dysphoric Speech pattern: Normal rate, Normal rhythm, Normal tone Speech volume: Normal Thought process: Intact Thought content: No Suicidal ideation, No Homicidal ideation Perceptual disturbances: No Auditory hallucinations, No Visual hallucinations Judgment: Limited Insight: Minimal Results - Vital Signs Vital Signs: Temp Pulse Resp BP Pulse Ox 96.8 F L 83 16 140/88 96 01/29/17 09:00 01/29/17 09:00 01/29/17 09:00 01/29/17 09:00 01/26/17 16:05 Assessment and Plan (1) Depression Current visit: Yes Status: Acute Plan: Continue hospitalization, Close observation, Suicide Precautions per unit protocol, Encourage participation in unit milieu, Group Therapy, Monitor sleep, Monitor appetite Additional Plan: Increase when necessary trazodone. Continue other meds the same. Monitor for side effects. Inpatient continues to improve we will plan for discharge tomorrow. Risks, benefits, side effects, alternatives discussed w/pt: Yes Patient agreeable to treatment: Yes Qualifiers: Depression Type: major depressive disorder Major depression recurrence: recurrent Active/Remission status: currently active Major depression episode severity: moderate Qualified Code(s): F33.1 - Major depressive disorder, recurrent, moderate (2) Anxiety Current visit: Yes Status: Acute Plan: Continue hospitalization, Close observation, Suicide Precautions per unit protocol, Encourage participation in unit milieu, Group Therapy, Monitor sleep, Monitor appetite Additional Plan: Something for some concern for diversion of Xanax prior to coming to the hospital. Continue lower dose of medications and encourage patient to consider tapering long-term. Risks, benefits, side effects, alternatives discussed w/pt: Yes Patient agreeable to treatment: Yes (3) Personality disorder Current visit: Yes Status: Acute Consult Discharge Plan - Plan Referrals: [facility] [Outside] - 01/31/17 12:00 pm (The above appointment is with Nuzhat, counselor, to open your case as a client. After this appointment he will be given a return follow-up to continue mental health counseling services. You will also be provided with an appointment to see the psychiatrist for outpatient psychiatric assessment and medication management services. You will be able to see the psychiatrist within 30 days of you discharge from the hospital. Please bring your photo ID and insurance card to your initial appointment in this office.)
[2017-01-29] MEDS: traZODone 50 MG TABLET PO PRN (20:31)
[2017-01-30] MEDS: Nicotine 21 MG PATCH.TD24 TD SCH (08:22)
[2017-01-30] MEDS: Multivit/Ca/Min/Fe/FA 1 TAB TABLET PO SCH (08:22)
[2017-01-30] MEDS: Lisinopril-HCTZ 20-12.5mg TABLET PO SCH (08:22)
[2017-01-30] MEDS: Gabapentin 300 MG CAPSULE PO SCH ×3 (08:22→20:34)
[2017-01-30] MEDS: APIXABAN 5 MG TABLET PO SCH ×2 (08:22→20:33)
[2017-01-30] MEDS: ALPRAZolam 1 MG TABLET PO SCH ×3 (08:22→20:34)
--- NOTE | 2017-01-30 13:25 | Psychiatry Progress Note ---
Date of Encounter: 01/30/17 Time of Encounter: 01:00 Subjective Interval history: Patient seen today case discussed with staff and treatent team , chart reviewed. I am little better today , still feels depressed states i have been thru a lot last few months, his physical condition and his marital issues has been very stressful, he denies thoughts of hurting self, guilt/hopelessness/worthlessness is still present. He is preoccupied with his chronic pain and is not sleeping so good but feels trazodone is helping . denies side effects. feels cymbalta is helping some. Review of Systems Psychiatric: Reports: depression, anxiety, abnormal sleep pattern, anhedonia, difficulty concentrating, hopelessness, irritability, mood swings Objective: Exam Patient orientation: Yes Person, Yes Time, Yes Place Level of alertness: Alert Patient appearance: Appropriate Behavior: cooperative, anxious Psychomotor activity: Slowed Eye contact: Minimal Contact Mood description: Anxious Affect description: congruent with mood, dysphoric Speech pattern: Slowed Speech volume: Normal Thought process: Intact Thought content: Yes Guilt Judgment: Limited Insight: Partial Results - Vital Signs Vital Signs: Temp Pulse Resp BP Pulse Ox 96.8 F L 84 16 139/90 96 01/30/17 09:00 01/30/17 09:00 01/30/17 09:00 01/30/17 09:00 01/26/17 16:05 Assessment and Plan (1) Depression Current visit: Yes Status: Acute Plan: Group Therapy, Monitor sleep, Monitor appetite, Family/Supportive other meeting Additional Plan: increase cymbalta 60 mg. Risks, benefits, side effects, alternatives discussed w/pt: Yes Patient agreeable to treatment: Yes Qualifiers: Depression Type: major depressive disorder Major depression recurrence: recurrent Active/Remission status: currently active Major depression episode severity: moderate Qualified Code(s): F33.1 - Major depressive disorder, recurrent, moderate (2) Anxiety Current visit: Yes Status: Acute Risks, benefits, side effects, alternatives discussed w/pt: Yes Patient agreeable to treatment: Yes (3) Personality disorder Current visit: Yes Status: Acute Consult Discharge Plan - Plan Referrals: [facility] [Outside] - 01/31/17 12:00 pm (The above appointment is with Nuzhat, counselor, to open your case as a client. After this appointment he will be given a return follow-up to continue mental health counseling services. You will also be provided with an appointment to see the psychiatrist for outpatient psychiatric assessment and medication management services. You will be able to see the psychiatrist within 30 days of you discharge from the hospital. Please bring your photo ID and insurance card to your initial appointment in this office.)
[2017-01-30] MEDS: traZODone 50 MG TABLET PO PRN (20:33)
[2017-01-30] MEDS: Acetaminophen 325 MG TABLET PO PRN (21:26)
[2017-01-31] MEDS: Multivit/Ca/Min/Fe/FA 1 TAB TABLET PO SCH (09:19)
[2017-01-31] MEDS: Lisinopril-HCTZ 20-12.5mg TABLET PO SCH (09:19)
[2017-01-31] MEDS: APIXABAN 5 MG TABLET PO SCH ×2 (09:19→20:23)
[2017-01-31] MEDS: Gabapentin 300 MG CAPSULE PO SCH ×3 (09:19→20:23)
[2017-01-31] MEDS: ALPRAZolam 1 MG TABLET PO SCH ×3 (09:20→20:23)
[2017-01-31] MEDS: Nicotine 21 MG PATCH.TD24 TD SCH (09:20)
--- NOTE | 2017-01-31 12:31 | Psychiatry Progress Note ---
Date of Encounter: 01/31/17 Time of Encounter: 12:00 Subjective Interval history: Patient seen today , case d/w staff, he has been compliant with treatment plan. showing improvement and feels cycontrerasalta is helping. states came to see him here and marital is better now. has support. denies suicidal ideation, has some SOB states has been like this for long time also has sleep apnea. Review of Systems Psychiatric: Reports: depression, anxiety, difficulty concentrating Objective: Exam Patient orientation: Yes Person, Yes Time, Yes Place Level of alertness: Alert Patient appearance: Appropriate Behavior: cooperative, anxious Psychomotor activity: Normal Eye contact: Maintains Eye Contact Mood description: Euthymic/stable, Anxious Affect description: congruent with mood Speech pattern: Normal rate Speech volume: Normal Thought process: Intact Thought content: Yes Intact Judgment: Fair Insight: Partial Results - Vital Signs Vital Signs: Temp Pulse Resp BP Pulse Ox 97 F L 88 16 135/91 96 01/31/17 09:00 01/31/17 09:00 01/31/17 09:00 01/31/17 09:00 01/26/17 16:05 Assessment and Plan (1) Depression Current visit: Yes Status: Acute Risks, benefits, side effects, alternatives discussed w/pt: Yes Patient agreeable to treatment: Yes Qualifiers: Depression Type: major depressive disorder Major depression recurrence: recurrent Active/Remission status: currently active Major depression episode severity: moderate Qualified Code(s): F33.1 - Major depressive disorder, recurrent, moderate (2) Anxiety Current visit: Yes Status: Acute Risks, benefits, side effects, alternatives discussed w/pt: Yes Patient agreeable to treatment: Yes (3) Personality disorder Current visit: Yes Status: Acute Consult Discharge Plan - Plan Referrals: [facility] [Outside] - 02/06/17 10:30 am (The above appointment is with Nuzhat, counselor, to open your case as a client. After this appointment he will be given a return follow-up to continue mental health counseling services. You will also be provided with an appointment to see the psychiatrist for outpatient psychiatric assessment and medication management services. You will be able to see the psychiatrist within 30 days of you discharge from the hospital. Please bring your photo ID and insurance card to your initial appointment in this office.)
[2017-01-31] MEDS: traZODone 50 MG TABLET PO PRN (20:23)
[2017-01-31] MEDS: Acetaminophen 325 MG TABLET PO PRN (20:24)
[2017-02-01] MEDS: APIXABAN 5 MG TABLET PO SCH (08:29)
[2017-02-01] MEDS: Multivit/Ca/Min/Fe/FA 1 TAB TABLET PO SCH (08:29)
[2017-02-01] MEDS: Lisinopril-HCTZ 20-12.5mg TABLET PO SCH (08:29)
[2017-02-01] MEDS: ALPRAZolam 1 MG TABLET PO SCH (08:29)
[2017-02-01] MEDS: Gabapentin 300 MG CAPSULE PO SCH (08:29)
[2017-02-01] MEDS: Nicotine 21 MG PATCH.TD24 TD SCH (08:29)
--- NOTE | 2017-02-01 09:59 | Discharge Summary ---
Date of Encounter: 02/01/17 Time of Encounter: 09:40 Diagnosis - Discharge Diagnosis (1) Depression Status: Acute Qualifiers: Depression Type: major depressive disorder Major depression recurrence: recurrent Active/Remission status: currently active Major depression episode severity: moderate Qualified Code(s): F33.1 - Major depressive disorder, recurrent, moderate (2) Anxiety Status: Acute (3) Personality disorder Status: Acute Medications - Discharge Medications Prescriptions: DULoxetine [Cymbalta] 60 mg PO DAILY #30 Amitriptyline HCl 150 mg PO HS 01/26/17 [History] Apixaban [Eliquis] 5 mg PO BID 01/26/17 [History] Atorvastatin [Lipitor] 40 mg PO HS 01/26/17 [History] BuPROPion SR (12 HR) [Wellbutrin SR] 150 mg PO BID 01/26/17 [History] Gabapentin [Neurontin] 900 mg PO TID 01/26/17 [History] Lisinopril/Hydrochlorothiazide [Zestoretic 20-12.5 mg Tablet] 1 each PO DAILY [History] Multivitamin [Multi-Day Vitamins] 1 each PO DAILY 01/26/17 [History] DULoxetine [Cymbalta] 60 mg PO DAILY #30 02/01/17 [Rx] Allergies Penicillins Allergy (Verified 01/26/17 16:09) Hives sulfamethoxazole [From Bactrim] Allergy (Verified 01/26/17 16:09) Hives trimethoprim [From Bactrim] Allergy (Verified 01/26/17 16:09) Hives Provider Date of admission: 01/26/17 19:39 Primary care physician: PCP NONE Assessment and Plan - Patient/Caregiver Discharge Instructions Diet: regular diet - Follow up Plan Follow up with: [facility] [Outside] - 02/06/17 10:30 am (The above appointment is with Nuzhat, counselor, to open your case as a client. After this appointment he will be given a return follow-up to continue mental health counseling services. You will also be provided with an appointment to see the psychiatrist for outpatient psychiatric assessment and medication management services. You will be able to see the psychiatrist within 30 days of you discharge from the hospital. Please bring your photo ID and insurance card to your initial appointment in this office.) Overall status at discharge: Stable Disposition: Home, Self-Care Hospital Course Hospital course: Mr. Liu is a 36 year old male who was admitted from ER where he presented with suicidal ideation of stabbing self in heart. he has h/o depression , anxiety and personality disorder, no substance use history. pt is morbidly obese white male who complied with treatment plan and showed improvement in his depression with adding cymbalta and he denies any side effects. he at present not suicidal and not danger to others. he has gained some insight and has agreed to follow outpatient. patient has all refills and will be given cymbalta prescription only , he has appointment with his psychiatrist Dr Sales next week. Time spent discussing smoking cessation with patient: 3 to 10 minutes Does patient wish to continue nicotine replacement upon disc: Yes (states he has patches at home, PCP prescribed for him.) - Time Spent with Patient Total time spent providing and/or coordinating discharge services: Less than 30 minutes Quality - Multiple Antipsychotics Patient discharged on 2 or more antipsychotic medications: No Procedures - Procedures Procedures: Medication Management, Crisis Stabilization, Supportive Therapy, Group Therapy, Psychoeducational Therapy Mental Status Exam - Mental Status Exam Patient orientation: Yes Person, Yes Time, Yes Place Level of alertness: Alert Patient appearance: Appropriate Behavior: cooperative, anxious Psychomotor activity: Normal Eye contact: Maintains Eye Contact Mood description: Euthymic/stable, Anxious Affect description: congruent with mood Speech pattern: Normal rate, Normal rhythm, Normal tone Speech Volume: Normal Thought process: Intact Thought Content: Yes Intact Judgment: Good Insight: Partial
[2017-02-01 10:25] VITALS: BP 138/94
== END 2017-02-01 12:05 | disposition home or self-care (01) | DRG 751 ==
LOC: EMEROO 16:04 → 1ANU 19:30 → SUATTDRO 19:39
PROVIDERS: ADMIT Student in an Organized Health Care Education/Training Program; ATTEND Psychiatry & Neurology Psychiatry